=== PATIENT | female | born 1975 | race Caucasian/White ===

== ENCOUNTER 2023-10-10 17:32 | Emergency (ER) | payer SELFPAY ==
[~2023-10-10] VITALS: Ht 157.4 cm; Wt 108.9 kg
[2023-10-10] MEDS ORDERED: ACETAMINOPHEN 325 MG TAB PO ONE (18:05)
[2023-10-10] MEDS ORDERED: SODIUM CHLORIDE 0.9% 1,000 ML IV ONE (18:05)
[2023-10-10] MEDS ORDERED: diphenhydrAMINE hydrochloride 50 MG/ML VIAL IV ONE (18:05)
[2023-10-10] MEDS ORDERED: Ketorolac Tromethamine 15 MG/ML VIAL IV ONE (18:05)
[2023-10-10] MEDS ORDERED: Metoclopramide Hydrochloride 10 MG/2 ML AMP IV ONE (18:05)
[2023-10-10 18:32] LABS: BASO # 0.1 10*3/uL (0.0-0.1); BASO % 0.5 % (0.0-1.0); EOS # 0.2 10*3/uL (0.0-0.4); EOS % 2.1 % (1.0-4.0); HEMATOCRIT 42.4 % (37.0-47.0); LYMPH # 2.9 10*3/uL (1.3-4.4); LYMPH % 31.1 % (27.0-41.0); MEAN CELL VOLUME 91.6 fl (81.0-99.0); MEAN CORPUSCULAR HGB 29.6 pg (27.0-31.0); MEAN CORPUSCULAR HGB CONC 32.3 g/dl (33.0-37.0); MEAN PLATELET VOLUME 9.5 fl (9.6-12.3); MONO # 0.6 10*3/uL (0.1-1.0); MONO % 6.8 % (3.0-9.0); NEUT # 5.6 10*3/uL (2.3-7.9); NEUT % 59.3 % (47.0-73.0); PLATELET COUNT AUTOMATED 404 10*3/uL (130-400); RED BLOOD COUNT 4.63 10*6/uL (4.10-5.10); RED CELL DISTRI WIDTH 13.2 % (0-14.5); WHITE BLOOD COUNT 9.4 10*3/uL (4.8-10.8)
[2023-10-10] MEDS ORDERED: REGLAN10 M1 PO (18:48)
[2023-10-10] MEDS ORDERED: IBU800 M2 PO (18:48)
[2023-10-10 18:49] LABS: ALKALINE PHOSPHATASE 77 U/L (46-116); BUN 6 mg/dl (9-23); CHLORIDE 107 mmol/L (98-107); POTASSIUM 3.9 mmol/L (3.4-5.1); SGPT/ALT 10 U/L (5-49); TOTAL PROTEIN 7.1 gm/dL (6.0-8.0)
== END 2023-10-10 19:00 | disposition home or self-care (01) ==
LOC: ED 17:32
PROVIDERS: Emergency Medicine
DX: R51.9 Headache, unspecified (principal); Z88.8 Allergy status to other drugs, medicaments and biological substances